=== PATIENT | female | born 1995 | race Caucasian/White ===

== ENCOUNTER 2020-10-04 13:17 | Emergency (ER) | payer OTHER | END 2020-10-04 16:28 | disposition home or self-care (01) | LOC: FER 13:17 | DX: S93.402A Sprain of unspecified ligament of left ankle, initial encounter (principal); W19.XXXA Unspecified fall, initial encounter; Y92.89 Other specified places as the place of occurrence of the external cause; Y99.0 Civilian activity done for income or pay; Z87.828 Personal history of other (healed) physical injury and trauma | CPT/HCPCS: 73610 ==